=== PATIENT | male | born 1985 | race Two or more races ===

== ENCOUNTER 2025-04-04 12:25 | Inpatient (IN) | payer OTHER ==
[~2025-04-04] VITALS: Ht 175.3 cm; Wt 85.6 kg
--- NOTE | 2025-04-04 13:18 | DVH ---
CT CT AB PEL WO CON-NO ORAL OR IV INDICATION: Postsurgical wound dehiscence/bleed EXAM DATE: 04/04/2025 12:42 PM COMPARISON: None RADIATION DOSE: CTDIvol: 7.45 mGy, DLP: 396.72 mGy*cm PROCEDURE: Helical CT images were obtained of the abdomen and pelvis without IV contrast Sagittal and coronal reconstructions are provided. ORAL CONTRAST: None. ADDITIONAL IMAGES / REFORMATS: None All C T scans at this medical facility are performed using dose modulation techniques as appropriate to a p erformed exam including the following: Automated exposure control was utilized; adjustment of the MA and/or KV according to patient size; and use of iterative reconstruction technique. FINDINGS: LUNG BASE: Bibasilar atelectasis. Right basilar calcified granuloma. LIVER: Subcentimeter hepatic cyst at the inferior liver tip. GALLBLADDER AND BILIARY TREE: Absent gallbladder. No intra- or extrahepatic biliary ductal dilation. PANCREAS: Normal. SPLEEN: Normal. BOWEL: Mildly distended small bowel. Normal appendix. ADRENALS: Normal. KIDNEYS AND URETER: Normal. BLADDER: Normal. REPRODUCTIVE ORGANS: Normal. LYMPH NODES:No lymphadenopathy. PERITONEUM: Pneumoperitoneum. VESSELS: Scattered atherosclerotic calcifications are noted. RETROPERITONEUM: Normal. ABDOMINAL WALL: Normal. BONES: Scattered osseous degenerative changes are noted. IMPRESSION: Small volume pneumoperitoneum could be seen with a recent post operative state. No focal fluid collec tion visualized. Mildly distended small bowel could be a mild ileus.
[2025-04-04 13:21] LABS: Basophils # (auto) 0 10 ^3/uL (0-0.2); Basophils % (auto) 0.2 % (0.0-2.0); Eosinophils # (auto) 0 10 ^3/uL (0-0.8); Eosinophils % (auto) 0.1 % (0.0-7.0); Hematocrit 43.9 % (41.0-53.0); Hemoglobin 15.4 g/dL (13.5-17.5); Lymphocytes % (auto) 24.2 % (10.0-50.0); Mean Corpuscular Hemoglobin 31.6 pg (28.0-32.0); Mean Corpuscular Hgb Conc. 35.1 g/dL (32.0-36.0); Mean Corpuscular Volume 89.9 fL (80.0-100.0); Monocytes # (auto) 1.2 10 ^3/uL (0-1.3); Monocytes % (auto) 9.5 % (0.0-12.0); Neutrophils # (auto) 8.1 10 ^3/uL (1.6-8.6); Platelet Count (auto) 272 10^3/uL (140-450); Red Blood Cells 4.89 10^6/uL (4.5-5.90); White Blood Cell 12.3 10^3/uL (4.4-10.8)
--- NOTE | 2025-04-04 13:34 | ED.PDOC ---
History of Present Illness(SKN HPI Comments HPI: Initial Vitals BP: 137/91 HR: 82 RR: 17 O2 Sat: 96% Temp: 98.3F Medications: Social History: ETOH use. Denies smoking and drug use. Allergies: NKDA HPI: Poor Historian. 40-year-old male status post laparoscopic cholecystectomy yesterday at an outside facility. Patient states today he noticed some bleeding from his surgical wound. Patient also voices he has been having some shortness of breath. Patient admits to use of alcohol. Denies any nausea or vomiting or fever or chest pain or abdominal pain. Past Medical History: Past Surgical History: Cholecystectomy REVIEW OF SYSTEMS: CONSTITUTIONAL: Denies acute: fever, diaphoresis, chills, HEAD: Denies acute: headache, photophobia Eyes: Denies acute: Double vision, vision loss, eye pain, eye discharge. EARS: Denies acute: tinnitus, hearing loss, ear discharge, ear pain, THROAT: Denies acute: sore throat, swelling, difficulty swallowing , pain with swallowing, change in voice. NECK: Denies acute: neck pain, neck swelling, stiff neck. HEART: Denies acute : chest pain, palpitations, LUNGS: Denies acute: wheezing, cough, hemoptysis ABDOMEN: Denies acute: abdominal pain, Nausea, Vomiting, diarrhea, melena , hematemesis, hematochezia SKIN: Denies acute: rash, redness, lesions, itchiness. EXTREMITIES: Denies acute: calf pain, numbness, tingling, weakness, denies pain in extremity. Denies acute: Low back pain. Neuro: Denies acute: focal neurological deficit, motor or sensory focal neurological deficit, tremors, seizure like activity, confusion, dizziness, change in mental status, loss of bowel or bladder function, cauda equina like symptoms. : Denies acute: dysuria, hematuria, flank pain, increase in urinary frequency. PSYCH: Denies acute: hallucination, suicidal ideation, homicidal ideation. PHYSICAL EXAM: General: ----no----acute distress, awake and alert. Head: normocephalic, atraumatic. Neck: supple, trachea is midline, no swelling. Throat: Normal phonation. Eyes:, no erythema, no purulent discharge, no proptosis, no icterus. Heart: regular rate, regular rhythm, no significant murmur appreciated. Lungs: no apparent respiratory distress, Able to speak in full sentences. No wheezing, no rhonchi, no crackles. No stridors Clear to auscultation bilaterally. Abdomen: non tender to palpation, non distended, soft, no guarding, no rebound, + bowel sounds. Evaluation of the surgical site: Mid abdomen paulina are present. There is oozing of blood that is controlled with gauze pressure. Neuro: Awake, Alert, oriented to name, self, situation, follows commands GCS=15. Speech is normal. Skin: no petechia, no purpura, no cyanosis, non-pale, not jaundice. Lower extremities: --no - Pitting edema no deformity, no focal swelling, no calf TTP. Makes eye contact. moves all four extremities. Face: no apparent facial droop. Ambulating in the ED independently. ED COURSE: DISCLAIMER: This medical document was created using an electronic medical record system with voice recognition software and computerized dictation system. Although this document has been carefully reviewed, there might still be some phonetic and typographical errors. Occasional wrong-word or "sound-alike" substitutions may have occurred due to the inherent limitations of voice recognition software. These areas are purely typographical due to imperfections of the software programs and do not reflect any compromise in the patient's medical care. Please read the chart carefully and recognize, using context, where these substitutions have occurred. Chief Complaint: Wound Check Time Seen by MD: 13:00 History of Present Illness: Medications, Allergies Allergies: Coded Allergies: NO KNOWN ALLERGIES (Unverified , 04/04/25) Information Source: Patient Mode of Arrival: Ambulatory Was a procedure done? Was a procedure done?: No Differential Diagnosis (INTG) Abscess: Abscess, Bacteremia, Cellulitis, Gas Gangrene Differential Diagnosis: Cellulitis, Other (Postsurgical complication, wound dehiscence, as far as patient's shortness of breath: DDx include ACS, unstable angina, anxiety, PE, pneumothroax, neoplasm, cardiac ischemia, COPD, asthma, CHF, pleural effusion, tobacco abuse, pneumonia, hypoxia, hypercapnia, anemia., infection/sepsis., pulmonary edema. Asthma, Cardiac tamponade, infection.) X-Ray, Labs, Meds, VS Vital Signs Date Time Temp Pulse Resp B/P (MAP) Pulse Ox O2 Delivery O2 Flow Rate FiO2 04/04/25 16:19 18 98 Room Air* 0 21 04/04/25 15:44 98.3 77 18 133/92 (106) 97 98.3 04/04/25 12:38 98.3 82 17 137/91 (106) 96 98.3 Lab Test 04/04/25 16:35 04/04/25 14:15 04/04/25 13:10 Range/Units Troponin I High Sensitivity 4 4 3 L </=54 ng/L White Blood Count 12.3 H 4.4-10.8 10^3/uL Red Blood Count 4.89 4.5-5.90 10^6/uL Hemoglobin 15.4 13.5-17.5 g/dL Hematocrit 43.9 41.0-53.0 % Mean Corpuscular Volume 89.9 80.0-100.0 fL Mean Corpuscular Hemoglobin 31.6 28.0-32.0 pg Mean Corpuscular Hemoglobin Concent 35.1 32.0-36.0 g/dL Red Cell Distribution Width 13.0 11.8-14.3 % Platelet Count 272 140-450 10^3/uL Mean Platelet Volume 8.2 6.9-10.8 fL Neutrophils (%) (Auto) 66.0 37.0-80.0 % Lymphocytes (%) (Auto) 24.2 10.0-50.0 % Monocytes (%) (Auto) 9.5 0.0-12.0 % Eosinophils (%) (Auto) 0.1 0.0-7.0 % Basophils (%) (Auto) 0.2 0.0-2.0 % Neutrophils # (Auto) 8.1 1.6-8.6 10 ^3/uL Lymphocytes # (Auto) 3.0 0.4-5.4 10 ^3/uL Monocytes # (Auto) 1.2 0-1.3 10 ^3/uL Eosinophils # (Auto) 0 0-0.8 10 ^3/uL Basophils # (Auto) 0 0-0.2 10 ^3/uL Nucleated Red Blood Cells 0.0 % D-Dimer, Quantitative 1.14 H 0.0-0.49 mg/L FEU Sodium Level 135 L 136-145 mmol/L Potassium Level 3.8 3.5-5.1 mmol/L Chloride Level 101 98-107 mmol/L Carbon Dioxide Level 25 20-31 mmol/L Anion Gap 9 5-15 Blood Urea Nitrogen 11 9-23 mg/dL Creatinine 0.89 0.700-1.30 mg/dL Glomerular Filtration Rate Calc 110 >90 mL/min BUN/Creatinine Ratio 12.4 10.0-20.0 Serum Glucose 96 74-106 mg/dL Lactic Acid Level 1.0 0.4-2.0 mmol/L Calcium Level 9.3 8.7-10.4 mg/dL Total Bilirubin 1.0 0.2-1.0 mg/dL Aspartate Amino Transferase (AST) 38 H <34 U/L Alanine Aminotransferase (ALT) 55 H 7-40 U/L Alkaline Phosphatase 88 46-116 U/L B-Type Natriuretic Peptide 86.69 0-100 pg/mL Total Protein 6.8 5.7-8.2 g/dL Albumin 4.4 3.2-4.8 g/dL Lipase 31 12-53 U/L Current Medications Medications (Trade) Dose Ordered Sig/[place] Route Start Time Stop Time Status Last Admin Piperacillin Sod/ Tazobactam Sod 100 ml @ 100 mls/hr ONCE ONCE IV 04/04/25 15:45 04/04/25 16:44 DC 04/04/25 17:42 Albuterol (Ventolin Medneb) 2.5 mg ONCE ONCE NEB 04/04/25 16:00 04/04/25 16:02 DC 04/04/25 16:19 Ipratropium [place] (Atrovent Medneb) 1 mg ONCE ONCE NEB 04/04/25 16:00 04/04/25 16:02 DC 04/04/25 16:19 Acetaminophen/ Hydrocodone Bitart ([place] 5/325MG Tab) 1 tab ONCE ONCE PO 04/04/25 16:00 04/04/25 16:02 DC 04/04/25 17:[address] [address] Ph: [phone] DIAGNOSTIC IMAGING Diagnostic Imaging Report : [id number] Signed PATIENT: JAYME CUNHA: [id number] UNIT: [id number] : 1985 LOC: ER ROOM / BED: / AGE / SEX: 40 / M ADM STATUS: REG ER SERVICE 1243 ORDERING PHYSICIAN: MEGAN HAYNES DO PROCEDURE(s): ABPL - CT AB PEL WO CON-NO ORAL OR IV REASON: Postsurgical wound dehiscence/bleed ORDER NUMBER(s): [id number], ACCESSION NUMBER(s): [id number] CT CT AB PEL WO CON-NO ORAL OR IV INDICATION: Postsurgical wound dehiscence/bleed EXAM DATE: 04/04/2025 12:42 PM COMPARISON: None RADIATION DOSE: CTDIvol: 7.45 mGy, DLP: 396.72 mGy*cm PROCEDURE: Helical CT images were obtained of the abdomen and pelvis without IV contrast Sagittal and coronal reconstructions are provided. ORAL CONTRAST: None. ADDITIONAL IMAGES / REFORMATS: None All CT scans at this medical facility are performed using dose modulation techniques as appropriate to a performed exam including the following: Automated exposure control was utilized; adjustment of the MA and/or KV according to patient size; and use of iterative reconstruction technique. FINDINGS: LUNG BASE: Bibasilar atelectasis. Right basilar calcified granuloma. LIVER: Subcentimeter hepatic cyst at the inferior liver tip. GALLBLADDER AND BILIARY TREE: Absent gallbladder. No intra- or extrahepatic biliary ductal dilation. PANCREAS: Normal. SPLEEN: Normal. BOWEL: Mildly distended small bowel. Normal appendix. ADRENALS: Normal. KIDNEYS AND URETER: Normal. BLADDER: Normal. REPRODUCTIVE ORGANS: Normal. LYMPH NODES:No lymphadenopathy. PERITONEUM: Pneumoperitoneum. VESSELS: Scattered atherosclerotic calcifications are noted. RETROPERITONEUM: Normal. ABDOMINAL WALL: Normal. BONES: Scattered osseous degenerative changes are noted. IMPRESSION: Small volume pneumoperitoneum could be seen with a recent post operative state. No focal fluid collection visualized. Mildly distended small bowel could be a mild ileus. ATED BY: TINO JOHNSON MD DICTATED DATE/TIME: 04/04/25 1316 SIGNED BY: TINO JOHNSON MD SIGNED DATE/TIME: 04/04/25 131 CC: [place] [address] Ph: [phone] DIAGNOSTIC IMAGING Diagnostic Imaging Report : [id number] Signed PATIENT: VICKY CUNHAT: [id number] UNIT: [id number] : 1985 LOC: ER ROOM / BED: / AGE / SEX: 40 / M ADM STATUS: REG ER SERVICE 1429 ORDERING PHYSICIAN: MEGAN HAYNES DO PROCEDURE(s): CTACH - CT ANGIO CHEST CONTRAST REASON: sob post op ORDER NUMBER(s): [id number], ACCESSION NUMBER(s): [id number] CTA Chest with intravenous contrast INDICATION: sob post op COMPARISON: CT of the abdomen and pelvis 04/04/2025 TECHNIQUE: Multidetector spiral CTA of the chest was performed of the chest with intravenous contrast. PULMONARY ANGIOGRAPHY PROTOCOL was utilized using a bolus- tracking technique centered on the main pulmonary artery. Axial, coronal and sagittal multiplanar and MIP reformats were performed. CONTRAST: Type of contrast: Omni 350 Contrast injected: 65 ml Radiation dose : Chest: CTDI volume is 24.86 mGy. Dose-length product is 962.8 mGy*cm The dose indicators for CT are the volume computed Tomography (CT) dose Index (CTDIvol) and the dose Length product (DLP), and are measured in units of mGy and mGy-cm, respectively. These indicators are not patient dose, but values generated from the CT scanner acquisition factors. The report includes radiation exposure data for exposures received during this examination. Findings: Limited by motion. Pulmonary artery: No large central or large segmental pulmonary embolism. Lower neck: Normal thyroid. Lungs: Atelectasis and consolidation in the lung bases. Heart/Vascular Structures: Normal heart size. No pericardial effusion. Lymph Nodes: No adenopathy Pleura: No pleural effusion or significant pneumothorax. Musculoskeletal: No acute osseous abnormality. Soft tissues: Normal. Upper abdomen: Pneumoperitoneum likely related to recent surgery. IMPRESSION: 1. Limited by motion. No large central pulmonary embolism. 2. Atelectasis and consolidation in the lung bases. Clinical correlation and continued follow-up is recommended. 3. Pneumoperitoneum likely related to recent abdominal surgery, similar to same day CT of the abdomen. HS:Y ATED BY: DK VARELA MD DICTATED DATE/TIME: 04/04/25 152 SIGNED BY: DK VARELA MD SIGNED DATE/TIME: 04/04/25 152 CC: Time of 1ST Reevaluation: 14:00 Reevaluation 1ST: Unchanged Time of 2ND Reevaluation: 21:42 (Bleeding was controlled with simple pressure with gauze.) Patient Education/Counseling: Diagnosis, Treatment Family Education/Counseling: No Family Present Comments Patient presented with the above HPI.---postsurgical complication and dyspnea---workup was initiated. patient was found with the above mentioned diagnosis. the following medications were ordered: please refer to order lists of meds and tests obtained by myself Dr. Haynes. Patient ED course and VS have been stabilized. Patient has been reassessed in the ED and remained in a stable condition. Pertinent incidental findings were discussed with the patient and/or family. Patient/family voices understanding and is agreeable with plan. Patient has been observed in the ED adequate length of time to insure improvement/stability. Escalation of care considered: Consideration of escalation to observation or admission Patient requested a breathing treatment for history of asthma. Patient was given antibiotics for consolidation in the lungs. Patient was ADMITTED to the medicine team for further evaluation and treatment of their presentation. All the reports of any imaging studies that were ordered by myself were reviewed by myself. Departure 1 Departure Time of Disposition: 15:37 Impression: Primary Impression: Lung consolidation Additional Impression: Postoperative bleeding from incision Disposition: ADMITTED INPATIENT Admit to: Tele Condition: Guarded Discharged With: Self Critical Care Note Critical Care Time?: Yes (55 min-critical care time only) I personally scribed for MEGAN HAYNES DO ([email or web address]) on 04/04/25 at 13:34. Electronically submitted by Shaheed Jameson ([email or web address]). I personally scribed for MEGAN HAYNES DO ([email or web address]) on 04/04/25 at 14:36. Electronically submitted by Shaheed Jameson ([email or web address]). MEGAN HAYNES DO Apr 04, 2025 13:34
[2025-04-04 13:44] LABS: Alanine Aminotransferase 55 U/L (7-40); Albumin 4.4 g/dL (3.2-4.8); Alkaline Phosphatase 88 U/L (46-116); Anion Gap 9 (5-15); Aspartate Aminotransferase 38 U/L (<34); BUN/Creatinine Ratio 12.4 (10.0-20.0); Blood Urea Nitrogen 11 mg/dL (9-23); Calcium 9.3 mg/dL (8.7-10.4); Carbon Dioxide 25 mmol/L (20-31); Chloride 101 mmol/L (98-107); Glucose 96 mg/dL (74-106); Lipase 31 U/L (12-53); Potassium 3.8 mmol/L (3.5-5.1); Sodium 135 mmol/L (136-145); Total Protein 6.8 g/dL (5.7-8.2)
[2025-04-04] MEDS: IOHEXOL 350 MG/ML 100ML IJ ONE (14:41)
--- NOTE | 2025-04-04 15:24 | DVH ---
CTA Chest with intravenous contrast INDICATION: sob post op COMPARISON: CT of the abdomen and pelvis 04/04/2025 TECHNIQUE: Multidetector spiral CTA of the chest was performed of the chest with intravenous contrast . PULMONARY ANGIOGRAPHY PROTOCOL was utilized using a bolus-tracking technique centered on the main p ulmonary artery. Axial, coronal and sagittal multiplanar and MIP reformats were performed. CONTRAST: Type of contrast: Omni 350 Contrast injected: 65 ml Radiation dose : Chest: CTDI volume is 24.86 mGy. Dose-length product is 962.8 mGy*cm The dose indicators for CT are the volume computed Tomography (CT) dose Index (CTDIvol) and the dose Length product (DLP), and are measured in units of mGy and mGy-cm, respectively. These indicators are not patient dose, but values generated from the CT scanner acquisition factors. The report includes radiation exposure data for exposures received during this examination. Findings: Limited by motion. Pulmonary artery: No large central or large segmental pulmonary embolism. Lower neck: Normal thyroid. Lungs: Atelectasis and consolidation in the lung bases. Heart/Vascular Structures: Normal heart size. No pericardial effusion. Lymph Nodes: No adenopathy Pleura: No pleural effusion or significant pneumothorax. Musculoskeletal: No acute osseous abnormality. Soft tissues: Normal. Upper abdomen: Pneumoperitoneum likely related to recent surgery. IMPRESSION: 1. Limited by motion. No large central pulmonary embolism. 2. Atelectasis and consolidation in the lung bases. Clinical correlation and continued follow-up is r ecommended. 3. Pneumoperitoneum likely related to recent abdominal surgery, similar to same day CT of the abdomen . HS:Y
[2025-04-04] MEDS: IPRATROPIUM BROM 0.5 MG/2.5ML INH SOL NEB ONE (16:19)
[2025-04-04] MEDS: ALBUTEROL SULF 2.5 MG/0.5ML(0.5%) NEB SOLN NEB ONE (16:19)
--- NOTE | 2025-04-04 16:53 | DVHHP2 ---
History of Present Illness Reason for Visit: Abdominal pain History of Present Illness 40-year-old male past medical history left rib fracture with the chest tube to the left chest wall from trauma chief complaint patient recently had a lap alba yesterday he states he went to [facility] and had a laparoscopic cholecystectomy he was discharged home and he went out to eat with his and he noticed that he had some drainage coming from his surgical incision to the lower part of his abdomen patient states he does have some pain he did have an episode of vomiting but there was no blood there no diarrhea he states he was not discharged with any antibiotics and he has subjective fevers also. Patient did complain of some shortness of the breath and he did admit to the ED doctor he had some alcohol when speaking with the patient patient states he has a little pain in his abdomen when evaluating patient's labs and imaging from the ED CT angio was negative for PE it shows atelectasis and consolidation in the lung base patient also had a CT scan of the abdomen pelvis shows small volume pneumoperitoneum which is likely postop changes in his ileus developing ileus patient was given [place] albuterol and Atrovent was given Zosyn white count was 12.3 sodium was 135 otherwise CBC and CMP was unremarkable lipase was 1.0 BN P is 86.69 lipase was 30 the one troponin x2 was negative AST was 38 ALT was 55 with these findings we will admit and ask for General surgery evaluation we will also provide IV antibiotics and pain management Past Medical History See HPI above Past Surgical History See HPI above Family History Reviewed, non-contributory to the management of this case. Past Social History Patient is a smoker wants a nicotine patch denies drug or alcohol use Review of Systems Constitutional: Yes: Fever, Chills, Sweats; No: Weakness, Malaise, Other Eyes: No: Pain, Vision change, Conjunctivae inflammation, Eyelid inflammation, Other, Redness ENT: No: Ear pain, Ear discharge, Nose pain, Nose discharge, Nose congestion, Mouth pain, Mouth swelling, Throat pain, Throat swelling, Other Respiratory: No: Cough, Dry, Shortness of breath, SOB with excertion, Wheezing, Hemoptysis, Pleuritic Pain, Sputum, Wheezing, Other Cardiovascular: No: Chest Pain, Palpitations, Orthopnea, Paroxysmal Noc. Dyspnea, Edema, Lt Headedness, Other Gastrointestinal: Nausea, Vomiting, Abdominal Pain; No: Diarrhea, Constipation, Melena, Hematochezia, Other Genitourinary: No Dysuria, No Frequency, No Incontinence, No Hematuria, No Retention, No Other Musculoskeletal: No: other, neck pain, shoulder pain, arm pain, back pain, hand pain, leg pain, foot pain Skin: No: Rash, Lesions, Jaundice, Bruising, Other Neurological: No: Weakness, Numbness, Incoordination, Change in speech, Confusion, Seizures, Other Allergies: Coded Allergies: NO KNOWN ALLERGIES (Unverified , 04/04/25) Exam Vital Signs Vital Signs Date Time Temp Pulse Resp B/P (MAP) Pulse Ox O2 Delivery O2 Flow Rate FiO2 04/04/25 16:19 18 98 Room Air* 0 21 04/04/25 15:44 98.3 77 133/92 (106) 98.3 General Appearance: Alert, Oriented X3, Cooperative, No acute distress HEENT: Atraumatic, PERRLA, EOMI, Mucous membr. moist/pink Respiratory: Clear to auscultation, Normal air movement Cardiovascular: Regular rate, Normal S1, Normal S2, No murmurs Abdominal: Normal bowel sounds, Soft, No hepatospenomegaly, No masses, Other (Five lap sites to abdomen covered with Band-Aid mid umbilicus site with paulina mild drainage noted no discharge wound we will approximate and close with the paulina compartments of the abdomen is soft) Extremities: No clubbing, No cyanosis, No edema, Normal pulses, No tenderness/swelling Skin: No rashes, No breakdown, No significant lesion Neuro: Normal gait, Normal speech, Strength at 5/5 X4 ext, Normal tone, Sensation intact, Cranial nerves 3-12 NL, Reflexes 2+ Psych/Mental Status: Mental status NL, Mood NL Labs/Xrays CT scan of the of angio negative for PE atelectasis consolidation in the lung base CT scan of the abdomen and pelvis shows small volume pneumoperitoneum and ileus I reviewed labs, imaging CT scan abdomen pelvis, EKG and all diagnostic studies on this patient from ED records and the medical chart Labs Test 04/04/25 16:35 04/04/25 13:10 Range/Units White Blood Count 12.3 H 4.4-10.8 10^3/uL Red Blood Count 4.89 4.5-5.90 10^6/uL Hemoglobin 15.4 13.5-17.5 g/dL Hematocrit 43.9 41.0-53.0 % Mean Corpuscular Volume 89.9 80.0-100.0 fL Mean Corpuscular Hemoglobin 31.6 28.0-32.0 pg Mean Corpuscular Hemoglobin Concent 35.1 32.0-36.0 g/dL Red Cell Distribution Width 13.0 11.8-14.3 % Platelet Count 272 140-450 10^3/uL Mean Platelet Volume 8.2 6.9-10.8 fL Neutrophils (%) (Auto) 66.0 37.0-80.0 % Lymphocytes (%) (Auto) 24.2 10.0-50.0 % Monocytes (%) (Auto) 9.5 0.0-12.0 % Eosinophils (%) (Auto) 0.1 0.0-7.0 % Basophils (%) (Auto) 0.2 0.0-2.0 % Neutrophils # (Auto) 8.1 1.6-8.6 10 ^3/uL Lymphocytes # (Auto) 3.0 0.4-5.4 10 ^3/uL Monocytes # (Auto) 1.2 0-1.3 10 ^3/uL Eosinophils # (Auto) 0 0-0.8 10 ^3/uL Basophils # (Auto) 0 0-0.2 10 ^3/uL Nucleated Red Blood Cells 0.0 % D-Dimer, Quantitative 1.14 H 0.0-0.49 mg/L FEU Sodium Level 135 L 136-145 mmol/L Potassium Level 3.8 3.5-5.1 mmol/L Chloride Level 101 98-107 mmol/L Carbon Dioxide Level 25 20-31 mmol/L Anion Gap 9 5-15 Blood Urea Nitrogen 11 9-23 mg/dL Creatinine 0.89 0.700-1.30 mg/dL Glomerular Filtration Rate Calc 110 >90 mL/min BUN/Creatinine Ratio 12.4 10.0-20.0 Serum Glucose 96 74-106 mg/dL Lactic Acid Level 1.0 0.4-2.0 mmol/L Calcium Level 9.3 8.7-10.4 mg/dL Total Bilirubin 1.0 0.2-1.0 mg/dL Aspartate Amino Transferase (AST) 38 H <34 U/L Alanine Aminotransferase (ALT) 55 H 7-40 U/L Alkaline Phosphatase 88 46-116 U/L B-Type Natriuretic Peptide 86.69 0-100 pg/mL Total Protein 6.8 5.7-8.2 g/dL Albumin 4.4 3.2-4.8 g/dL Lipase 31 12-53 U/L Assessment/Plan Assessment/Plan acute pneumoperitoneum likely post op changes found on ct scan s/p lap alba on 04/03/25 at [facility] will consult general surgery for evaluation ordered morphine as needed for pain serial abd exam acute ileus without obstruction found on ct scan ordered ng tube if with vomiting ordered npo for now ordered ivf ordered morphine as needed for pain ordered general surgery consult ordered protonix acute bacterial pna likely hosp acquired since de 04/03/[address] scan no pe ordered zosyn for now o2 prn to keep sats >92% acute atelectasis ordered incentive spirometer acute leukocytosis multifactorial cont zosyn ordered wound culture fu results fen/ppx npo ivf scd protonix plan admit medicine general surgery evaluation Plan discussed with: Patient Date of Service: Apr 04, 2025 Billing Provider: AYDEE WELLS DNP Common Visit Codes: [id number] INP/OBS CARE (HIGH) AYDEE WELLS DNP Apr 04, 2025 16:53
[2025-04-04] MEDS: HYDROcodone-ACET 5/325MG TAB PO ONE (17:42)
[2025-04-04] MEDS: PIPERACILLIN-TAZOB 3.375GM 100 ML IV ONE (17:42)
[2025-04-04] MEDS ORDERED: DOCUSATE SOD 100 MG CAP PO PRN (19:30)
[2025-04-04] MEDS: PANTOPRAZOLE 40 MG/10 ML VIAL INJ IV ONE (19:30)
[2025-04-04] MEDS ORDERED: NITROGLYCERIN 0.4 MG SL TAB SL PRN (19:30)
[2025-04-04] MEDS: SODIUM CHLORIDE 0.9% 1,000 ML IV SCH (21:19)
[2025-04-05] VITALS (7 sets, daily range): BP systolic 115–124; BP diastolic 59–71; PULSE 67–75; RESP 18–20; TEMP 97.6–98; O2SAT 93–97
[2025-04-05] MEDS: ONDANSETRON HCL 4 MG/2 ML VIAL IV PRN (00:54)
[2025-04-05] MEDS: PIPERACILLIN-TAZOB 3.375GM 100 ML IV SCH (00:54)
[2025-04-05] MEDS: MORPHINE SULFATE INJ 2 MG/ml SYRG IV PRN (00:55)
[2025-04-05 05:16] LABS: Basophils # (auto) 0 10 ^3/uL (0-0.2); Basophils % (auto) 0.4 % (0.0-2.0); Eosinophils # (auto) 0.1 10 ^3/uL (0-0.8); Hematocrit 42.3 % (41.0-53.0); Hemoglobin 14.8 g/dL (13.5-17.5); Lymphocytes # (auto) 3.2 10 ^3/uL (0.4-5.4); Lymphocytes % (auto) 43.4 % (10.0-50.0); Mean Corpuscular Hemoglobin 31.6 pg (28.0-32.0); Mean Corpuscular Volume 90.1 fL (80.0-100.0); Monocytes # (auto) 0.9 10 ^3/uL (0-1.3); Monocytes % (auto) 12.3 % (0.0-12.0); Neutrophils # (auto) 3.2 10 ^3/uL (1.6-8.6); Neutrophils % (auto) 42.9 % (37.0-80.0); Nucleated Red Blood Cells % 0.1 %; Platelet Count (auto) 249 10^3/uL (140-450); Red Cell Distribution Width 13.2 % (11.8-14.3); White Blood Cell 7.3 10^3/uL (4.4-10.8)
[2025-04-05 05:34] LABS: Albumin 4.2 g/dL (3.2-4.8); Alkaline Phosphatase 78 U/L (46-116); Anion Gap 9 (5-15); Aspartate Aminotransferase 27 U/L (<34); BUN/Creatinine Ratio 10.2 (10.0-20.0); Blood Urea Nitrogen 9 mg/dL (9-23); Calcium 9.1 mg/dL (8.7-10.4); Carbon Dioxide 24 mmol/L (20-31); Chloride 104 mmol/L (98-107); Glucose 94 mg/dL (74-106); Sodium 137 mmol/L (136-145); Total Protein 6.7 g/dL (5.7-8.2)
[2025-04-05 05:37] LABS: Alanine Aminotransferase 48 U/L (7-40)
[2025-04-05] MEDS ORDERED: ARIP20TA4 PO (06:59)
[2025-04-05] MEDS ORDERED: LOSA-533 PO (06:59)
[2025-04-05] MEDS: PANTOPRAZOLE 40 MG/10 ML VIAL INJ IV SCH (09:35)
--- NOTE | 2025-04-05 13:24 | DVHPN2 ---
Assessment/Plan Assessment/Plan progress note 40M s/p laparosocopic procedure admitted for bleeding and ileus. Seen by surgery. physical exam aox4 PERLLA MMM clear breath sounds s1 s2 rrr abdomen soft nontender laparoscopic scar intact, not actively bleeding, crusted blood seen no LE edema labs ekg imaging reviewed pneumonia vs atelectasis incision site bleeding s/p laparascopic surgery slow transit constipation empiric abx cov surg consult appreciated miralax trend h/h diet reg dvt ppx ambulatory Plan discussed with: Patient Date of Service: Apr 05, 2025 Billing Provider: PATRIA COLLAZO MD Common Visit Codes: [id number] INP/OBS CARE(HIGH) PATRIA COLLAZO MD Apr 05, 2025 13:24
[2025-04-05] MEDS: POLYETHYLENE GLYCOL 17 GM PWDR PO ONE (14:22)
--- NOTE | 2025-04-05 15:33 | DVHINCON2 ---
SURGICAL CONSULTATION HISTORY OF PRESENT ILLNESS: The patient is a 40-year-old male 48 hours status post laparoscopic cholecystectomy. The patient presented to this Emergency Room due to bloody discharge from the surgical incision on his abdomen. PAST SURGICAL HISTORY: The patient had previous rib fractures and chest injuries secondary to trauma. REVIEW OF SYSTEMS: All 12 systems negative for any contributory information. PHYSICAL EXAMINATION: GENERAL: Reveals a well-developed, well-nourished male. HEENT: Pupils are equal, round and reactive to light equally. Sclerae nonicteric. Extraocular motion is intact. Uvula midline. Trachea midline. Carotids supple without bruits. Jugular veins are collapsed. HEART: Regular rate and rhythm without murmur or gallop. ABDOMEN: Nondistended. Appropriately tender secondary to recent surgery. Wounds are clear with small amount of crusted blood on the midline incision. There is no expressible hematoma. There is no indication for surgical intervention. The patient can resume oral diet and is cleared for discharge. To follow up with his surgeon of record. MD ASHLEY Barnes/JOE/NAKIA TID: [id number] RECEIPT: [id number]
[2025-04-05] MEDS ORDERED: LEVO500T91 PO (17:21)
--- NOTE | 2025-04-05 17:24 | DVHDS2 ---
Discharge Summary Date of Admission Apr 04, 2025 at 19:17 Date of Discharge: Apr 05, 2025 Labs/Diagnostic Data: Laboratory Results Test 04/05/25 04:43 04/04/25 16:35 04/04/25 13:10 White Blood Count 7.3 10^3/uL (4.4-10.8) Red Blood Count 4.70 10^6/uL (4.5-5.90) Hemoglobin 14.8 g/dL (13.5-17.5) Hematocrit 42.3 % (41.0-53.0) Mean Corpuscular Volume 90.1 fL (80.0-100.0) Mean Corpuscular Hemoglobin 31.6 pg (28.0-32.0) Mean Corpuscular Hemoglobin Concent 35.0 g/dL (32.0-36.0) Red Cell Distribution Width 13.2 % (11.8-14.3) Platelet Count 249 10^3/uL (140-450) Mean Platelet Volume 8.5 fL (6.9-10.8) Neutrophils (%) (Auto) 42.9 % (37.0-80.0) Lymphocytes (%) (Auto) 43.4 % (10.0-50.0) Monocytes (%) (Auto) 12.3 % (0.0-12.0) Eosinophils (%) (Auto) 1.0 % (0.0-7.0) Basophils (%) (Auto) 0.4 % (0.0-2.0) Neutrophils # (Auto) 3.2 10 ^3/uL (1.6-8.6) Lymphocytes # (Auto) 3.2 10 ^3/uL (0.4-5.4) Monocytes # (Auto) 0.9 10 ^3/uL (0-1.3) Eosinophils # (Auto) 0.1 10 ^3/uL (0-0.8) Basophils # (Auto) 0 10 ^3/uL (0-0.2) Nucleated Red Blood Cells 0.1 % Sodium Level 137 mmol/L (136-145) Potassium Level 4.0 mmol/L (3.5-5.1) Chloride Level 104 mmol/L (98-107) Carbon Dioxide Level 24 mmol/L (20-31) Anion Gap 9 (5-15) Blood Urea Nitrogen 9 mg/dL (9-23) Creatinine 0.88 mg/dL (0.700-1.30) Glomerular Filtration Rate Calc 111 mL/min (>90) BUN/Creatinine Ratio 10.2 (10.0-20.0) Serum Glucose 94 mg/dL (74-106) Calcium Level 9.1 mg/dL (8.7-10.4) Total Bilirubin 1.0 mg/dL (0.2-1.0) Aspartate Amino Transferase (AST) 27 U/L (<34) Alanine Aminotransferase (ALT) 48 U/L (7-40) Alkaline Phosphatase 78 U/L (46-116) Total Protein 6.7 g/dL (5.7-8.2) Albumin 4.2 g/dL (3.2-4.8) Troponin I High Sensitivity 4 ng/L (</=54) D-Dimer, Quantitative 1.14 mg/L FEU (0.0-0.49) Lactic Acid Level 1.0 mmol/L (0.4-2.0) B-Type Natriuretic Peptide 86.69 pg/mL (0-100) Lipase 31 U/L (12-53) Other Laboratory Tests 04/05/25 04:43 Brief Hx & Hospital Course: 40 M s/p laparascopic cholecystectomy admitted for wound incision bleeding. seen by surgery, cleared. pt also seem to have consolidation, asymptomatic, likely atelectasis post op. encouraged to keep doing incentive spirometry. stable to dc home Condition at Discharge: Good Final Diagnosis/Problems List Drainage from Lap incision sites (s/p Lap Emy at [facility]) Discharge Disposition: Home Discharge Instruct/Medications Diet: Regular Activity: Light activity Discharge Statement: "Patient was advised to return to the ER or call 911 if any headaches, dizziness, shortness of breath, chest pain, abdominal pain, bleeding, fevers, or worsening of medical condition. Patient was counseled about treatment plan, medications, possible side effects, patientverbalized understanding. All questions were answered to the best of my ability. This discharge took greater then 30 minutes in planning, reviewing documentation, counseling the patient, and discussing with other team members." ASSESSMENT ASSESSMENT Assessment Drainage from Lap incision sites (s/p Lap Emy at [facility]) Date of Service: Apr 05, 2025 Billing Provider: PATRIA COLLAZO MD Common Visit Codes: 27204-HGG/OBS DISCH DAY >30min PATRIA COLLAZO MD Apr 05, 2025 17:24
[2025-04-06] MEDS ORDERED: cefTRIAXone 1GM/50ML D5W 50 ML IV SCH (09:00)
[2025-04-06] MEDS ORDERED: AZITHROMYCIN 250 MG TAB PO SCH (10:00)
== END 2025-04-05 17:30 | disposition home or self-care (01) | DRG 810 ==
LOC: ER 12:25 → OVERFLOW 19:17
PROVIDERS: ADMIT Student in an Organized Health Care Education/Training Program; ATTEND Student in an Organized Health Care Education/Training Program
DX: L76.22 Postprocedural hemorrhage of skin and subcutaneous tissue following other procedure (principal); K56.7 Ileus, unspecified; J98.11 Atelectasis; F17.200 Nicotine dependence, unspecified, uncomplicated; Z90.49 Acquired absence of other specified parts of digestive tract; Y83.8 Other surgical procedures as the cause of abnormal reaction of the patient, or of later complication, without mention of misadventure at the time of the procedure
CPT/HCPCS: 36415; 71275; 74176; 80053; 83605; 83690; 83880; 84484; 85025; 85379; 94640; 96365; 99291; G0378; J2405; J2470; J2543